=== PATIENT | female | born 1995 | race Caucasian/White ===

== ENCOUNTER 2022-06-16 08:19 | Emergency (ER) | payer BC ==
--- OUTSIDE RECORDS SUMMARY | 2022-06-16 08:24 | XMS REPORT | Continuity of Care Document ---
:1995 Author Organization [facility] t Address [address] [place] [address] Care Team Providers Name Role Phone PCP, PATIENT DOES NOT HAVE A Primary Care Physician Unavaila ANTWON Vasquez Attending Clinician Unavailable ANTWON CUELLAR Attending Clinician Unavailable Payers Payer Name Policy Type Policy Number Effective Date Expiration Date S ource [employer] [place] - [id number] 2021 00:00:00 OUT OF STATE Problems Condition Condition Condition Status Onset Resolution Last Treating Co mments Source Name Details Category Date Date Treatment Clinician Date Family Family Disease Active Univers planning, planning, 11-17 ity of IUD IUD 00:00: [place] (intrauter (intrauter 00 Me dical ine ine Branch device) device) check/rein check/rein sertion/re sertion/re moval moval Oral Oral Disease Active Univers contracept contracept 11-17 it y of ion ion 00:00: [place] initiation initiation 00 Me dical Branch 38 weeks 38 weeks Disease Active Unive rs gestation gestation 4-24 ity of of of 00:00: [place] 00 Medi cara Branch Susceptibl Susceptibl Disease Active 2017-06 U nivers e to e to 1-14 it[place] of varicella [place]ella [place] ([place]-immun (non-immun 00 Me dical e), e), Branch currently currently Short Short Disease Active Univers interval interval 9-17 ity of between between 00:00: [place] pregnancie pregnancie 00 Me dical s s Branch affecting affecting , , antepartum antepartum Previous Previous Disease Active Unive rs 9-17 ity of section section 00:00: [place] 00 Medical Branch Family Family Disease Active Univers history of history of -17 it y of Down Down 00:00: [place] syndrome syndrome 00 Medica l Branch Encounter Encounter Disease Active Uni vers for for 5-10 it[place] of prescripti prescript[place] for 00 Medical nuvaring nuvaring Branch BMI BMI Disease Active Univers 26.0-26.9, 26.0-26.9, 5-10 it y of adult adult 00:00: [place] 00 Medical Branch Extensive Extensive Disease Active Uni vers tattoos tattoos 3-27 ity of 00:00: [place] 00 Medical Branch Unobtainab Unobtainab Disease Active U nivers le family le family 9-11 ity of history history 00:00: [place] due to due to 00 Medical adoption adoption Branch Allergies, Adverse Reactions, Alerts Allergy Allergy Status Severity Reaction(s) Onset Inactive Treating Comm ents Source Name Type Date Date Clinician NO KNOWN Drug Active Univers ALLERGIE Class ity of S [facility] Social History Social Habit Start Date Stop Date Quantity Comments Source Alcohol intake 2021-11-18 2021-11-18 Ex-drinker [place] of 00:00:00 00:00:00 (finding) [facility] Tobacco Comment 2017-10-21 2017-10-21 half a pack/day Univ [facility] of 00:00:00 00:00:00 [facility] History of 2017-09-22 Cigarette Smoker Universi ty of tobacco use 00:00:00 [facility] Tobacco use and 2017-02-22 2017-02-22 Never used Universit y of exposure 00:00:00 00:00:00 [facility] Sex Ass[birth year] At [birth year] Universit y of 00:00:00 00:00:00 [facility] Smoking Status Start Date Stop Date Source Former smoker 2017-02-22 00:00:00 2017-02-22 00:00:00 Universi ty of [facility] Medications Ordered Filled Start Stop Current Ordering Indication Dosage Frequency Signature Comments Components Source Medication Medication Date Date Medication? Clinician (SIG) Name Name sage Yes [id number] .35mg Take 1 Univers ne (ORTHO 6-06 tablet by ity o f MICRONOR) 00:00: mouth [place] 0.35 mg 00 daily. Medical tablet Branch diphenhydra Yes Take by Uni vers mine HCl 2-27 mouth. ity of (BENADRYL 23:09: [place] ALLERGY 18 Medical ORAL) Branch cetirizine Yes [id number] 10mg Take 1 Univers 10 mg 4-03 tablet by ity of tablet 00:00: mouth [place] 00 daily. [facility] Branch Immunizations Ordered Filled Immunization Date Status Comments Sourc e Immunization Name Name TDAP 2018-09-14 Completed [facility] 00:00:00 [facility] Influenza Virus 2018-03-28 Completed Universit y of Vaccine Quad .5 mL 00:00:00 [facility] 6+ MO Branch HPV9 2017-09-10 Completed [facility] 00:00:00 [facility] TDAP 2017-06-15 Completed [facility] 00:00:00 [facility] Influenza Virus 2017-06-15 Completed Universit y of Vaccine Quad IM 3+ 00:00:00 [facility] Vital Signs Vital Name Observation Time Observation Value Comments Source Systolic blood 2021-11-17 16:15:00 99 mm[Hg] Univer sity of pressure [facility] Diastolic blood 2021-11-17 16:15:00 61 mm[Hg] Unive rsity of [facility] Heart rate 2021-11-17 16:15:00 91 /min [facility] Body temperature 2021-11-17 16:15:00 36.72 [facility] Respiratory rate 2021-11-17 16:15:00 18 /min [facility] Body height 2021-11-17 16:15:00 162.6 cm [facility] Body weight 2021-11-17 16:15:00 49.442 kg [facility] BMI 2021-11-17 16:15:00 18.71 kg/m2 [facility] Procedures Procedure Date / Time Performed Performing Clinician Fer e POCT TEST 2021-11-17 16:43:00 Antwon Cuellar [facility] Encounters Start End Encounter Admission Attending Care Care Encounter Source Date/Time Date/Time Type Type Clinicians Facility Department ID 2021-11-17 2021-11-17 Outpatient R LUISANTWON RODRIGUEZ [facility] B [id number] [facility] [place] 11:00:00 11:33:37 LUISMICHAEL ANTWON [facility] 2021-11-17 2021-11-17 Office Polo DESTINYCATALINO KRAKOW [id number] [facility] [place] 11:00:00 11:33:37 Visit Anahieduardo PETAR [id number] it y of WOMEN'S [id number] [facility] [id number] [place] [address] Branch 2021-11-17 2021-11-17 Outpatient R LUISANAHI RODRIGUEZEDUARDO [facility] B [id number] [facility] [place] 11:00:00 11:33:37 POLO ANTWON [facility] Results Test Description Test Time Test Comments Results Result Comments Source POCT TEST 2021-11-17 16:43:00 Test Item Value Reference Range Interpretation Comme nts POCT PREG (test code = 1605) Negative On board controls acceptable with C Line (test code = 3574) Yes POCT PREG LOT # (test code = 3575) POCT PREG TEST DATE (test code = 3576) [facility]
--- NOTE | 2022-06-16 09:50 | RAD REPORT ---
EXAM DESCRIPTION: US - Transvaginal Study Probe - 06/16/2022 9:28 am CLINICAL HISTORY: Pelvic pain/right pelvic pain COMPARISON: none FINDINGS: The uterus measures 8 x 3 x 4 cm. A fibroid is not seen. The endometrial stripe measures 3 millimeters Right ovary measures 6 x 2 x 2 centimeters. It contains blood flow. It contains a 2.4 centimeter hemo rrhagic cyst. Left ovary normal in size and echotexture containing prominent follicles. The right and left adnexa unremarkable Small amount of free fluid IMPRESSION: Enlarged right ovary with a 2.4 centimeter hemorrhagic cyst Small amount of free fluid
[2022-06-16 09:58] LABS: Urine Blood Negative (Negative); Urine Glucose Negative (Negative); Urine Protein Negative (Negative)
[2022-06-16 10:09] LABS: Urine Bacteria <20 /HPF (<20); Urine RBC <5 /HPF (None Seen)
[2022-06-16 10:20] LABS: Absolute Lymphocytes (CBC) 2.3 K/uL (0.7-4.9); Hematocrit 44.2 % (36.0-45.0); Lymphocytes % 28.4 % (15.3-44.8); MCV 88.4 fL (80-100); MPV 8.9 fL (7.6-11.3)
[2022-06-16 10:35] LABS: Potassium 4.1 mmol/L (3.5-5.1)
[2022-06-16] MEDS ORDERED: NA CHLORIDE 0.9% 1,000 ML ONE (11:43)
[2022-06-16] MEDS ORDERED: KETOROLAC 30 MG/ML INJ ONE (11:43)
--- NOTE | 2022-06-16 12:07 | EDPHYS ---
Physician Documentation [facility] Name: Lizz Cherry Age: 26 yrs Sex: Female : 1995 Arrival Date: 06/16/2022 Time: 08:25 Bed 12 Private MD: ED Physician Carlos Zhou HPI: 06/16 09:00 This 26 yrs old Female presents to ER via Ambulatory with complaints of Abdominal jh7 Cramping. 09:00 Patient reports cervical pain that woke her from sleep this morning. States that the jh7 pain radiates to her right lower quadrant. LMP last week. Denies fever, nausea, vomiting, or diarrhea. Reports history of ruptured ovarian cyst. No OB at this time.. 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 - Social history:: Smoking status: Patient denies any tobacco usage or history of. ROS: 09:00 Constitutional: Negative for fever, chills, and weight loss, Eyes: Negative for injury, jh7 pain, redness, and discharge, Neck: Negative for injury, pain, and swelling, Cardiovascular: Negative for chest pain, palpitations, and edema, Respiratory: Negative for shortness of breath, cough, wheezing, and pleuritic chest pain, Back: Negative for injury and pain, MS/Extremity: Negative for injury and deformity, Skin: Negative for injury, rash, and discoloration, Neuro: Negative for headache, weakness, numbness, tingling, and seizure. 09:00 Abdomen/GI: Positive for abdominal pain, abdominal cramps, Negative for nausea, vomiting, and diarrhea, constipation, abdominal distension, black/tarry stool, rectal pain, rectal bleeding. 09:00 All other systems are negative. Exam: 09:00 Constitutional: This is a well developed, well nourished patient who is awake, alert, jh7 and in no acute distress. Head/Face: Normocephalic, atraumatic. Eyes: Pupils equal round and reactive to light, extra-ocular motions intact. Lids and lashes normal. Conjunctiva and sclera are non-icteric and not injected. Cornea within normal limits. Periorbital areas with no swelling, redness, or edema. Cardiovascular: Regular rate and rhythm with a normal S1 and S2. No gallops, murmurs, or rubs. Normal PMI, no JVD. No pulse deficits. Respiratory: Lungs have equal breath sounds bilaterally, clear to auscultation and percussion. No rales, rhonchi or wheezes noted. No increased work of breathing, no retractions or nasal flaring. Back: No spinal tenderness. No costovertebral tenderness. Full range of motion. Skin: Warm, dry with normal turgor. Normal color with no rashes, no lesions, and no evidence of cellulitis. MS/ Extremity: Pulses equal, no cyanosis. Neurovascular intact. Full, normal range of motion. Neuro: Awake and alert, GCS 15, oriented to person, place, time, and situation. Motor strength 5/5 in all extremities. Sensory grossly intact. Normal gait. 09:00 Abdomen/GI: Inspection: abdomen appears normal, Bowel sounds: normal, Palpation: soft, mild abdominal tenderness, in the right lower quadrant. Vital Signs: 09:35 BP 129 / 86; Pulse 89; Resp 17; Temp 98.4; Pulse Ox 100% on R/A; Weight 47.63 kg (R); 7 Height 5 ft. 3 in. (160.02 cm); Pain 3/10; 11:49 BP 116 / 59; Pulse 85; Resp 14; Pulse Ox 98% ; vg1 09:35 Body Mass Index 18.60 (47.63 kg, 160.02 cm) [facility] MDM: 08:54 Patient medically screened. [facility] 12:15 Differential diagnosis: ectopic , Ovarian cyst, uterine fibroids, ovarian jh7 torsion. Data reviewed: vital signs, nurses notes, lab test result(s), radiologic studies, ultrasound. Data interpreted: Pulse oximetry: is 98 %. Interpretation: normal. Counseling: I had a detailed discussion with the patient and/or guardian regarding: the historical points, exam findings, and any diagnostic results supporting the discharge/admit diagnosis, the need for outpatient follow up, an OB/Gyne specialist. Response to treatment: the patient's symptoms have markedly improved after treatment. ED course: Reviewed all labs and imaging with the patient. Informed her that she had a ruptured ovarian cyst. However, no further care in the ED is indicated due to there being adequate blood flow to the ovaries. The patient responded well after pain medication administration. Advised for her to follow-up with her KILN STACKER in the next few days. If she develops any new concerning symptoms, or current symptoms become severe, she may return to the ER for further eval.. 06/16 09:08 Order name: Basic Metabolic Panel; Complete Time: 11:09 [facility] 06/16 09:08 Order name: CBC with Diff; Complete Time: 10:34 [facility] 06/16 09:10 Order name: Urine Microscopic Only; Complete Time: 10:34 [facility] 06/16 09:58 Order name: Urine --Ancillary (enter results); Complete Time: 11:09 06/16 09:58 Order name: Urine Dipstick-Ancillary; Complete Time: 10:34 EDMS 06/16 09:08 Order name: IV Saline Lock; Complete Time: 11:29 [facility] 06/16 09:08 Order name: Labs collected and sent; Complete Time: 11:29 [facility] 06/16 09:08 Order name: NPO; Complete Time: 11:42 [facility] 06/16 09:08 Order name: Urine Dipstick-Ancillary (obtain specimen); Complete Time: 09:58 [facility] 06/16 09:08 Order name: Urine Test (obtain specimen); Complete Time: 09:58 [facility] 06/16 09:30 Order name: Transvaginal Study Probe; Complete Time: 10:34 EDMS Administered Medications: 11:45 Drug: NS 0.9% 1000 ml Route: IV; Rate: 1 bolus; Site: right antecubital; vg1 12:53 Follow up: IV Status: Completed infusion ap3 11:45 Drug: Ketorolac 15 mg Route: IVP; Site: right antecubital; vg1 12:53 Follow up: Response: No adverse reaction ap3 Disposition: 15:18 Co-signature as Attending Physician, Carlos Zhou MD I agree with the assessment and rt plan of care. Disposition Summary: 06/16/22 12:06 Discharge Ordered Location: Home [facility] Problem: new [facility] Symptoms: have improved [facility] Condition: Stable [facility] Diagnosis - Hemorrhagic Ovarian Cyst [facility] Followup: [facility] - With: Private Physician - When: 2 - 3 days - Reason: Recheck today's complaints Discharge Instructions: - Discharge Summary Sheet [facility] - Ovarian Cyst [facility] Forms: - Medication Reconciliation Form [facility] - Thank You Letter [facility] Signatures: Dispatcher [employer] EDRodriguez Velasquez RN RN jl7 Phoebe Alcaraz RN RN vg1 Rachel Michelle, EKG TECH EKG TECH 7 Carlos Zhou MD MD rt Nazia Pérez RN ap3 Corrections: (The following items were deleted from the chart) 09:29 09:09 Pelvis Complete+US.RAD.BRZ ordered. EDMS EDMS
--- NOTE | 2022-06-16 12:07 | ER ---
Nurse's Notes [facility] Name: Lizz Cherry Age: 26 yrs Sex: Female : 1995 Arrival Date: 06/16/2022 Time: 08:25 Bed 12 Private MD: Diagnosis: Hemorrhagic Ovarian Cyst Presentation: 06/16 09:35 Chief complaint: Patient states: Woke to RLQ stabbing pain, hx of ovarian cycst. jl7 Coronavirus screen: Vaccine status: Patient reports being unvaccinated. Ebola Screen: No symptoms or risks identified at this time. Initial Sepsis Screen: Does the patient meet any 2 criteria? No. Patient's initial sepsis screen is negative. Does the patient have a suspected source of infection? No. Patient's initial sepsis screen is negative. Risk Assessment: Do you want to hurt yourself or someone else? Patient reports no desire to harm self or others. Onset of symptoms was June 16, 2022. 09:35 Method Of Arrival: Ambulatory [facility] 09:35 Acuity: HOLLIE 3 jl7 Triage Assessment: 09:36 General: Appears in no apparent distress. uncomfortable, Behavior is calm, cooperative, jl7 appropriate for age. Pain: Complains of pain in left lower quadrant Pain currently is 3 out of 10 on a pain scale. GI: Reports lower abdominal pain. 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 - Social history:: Smoking status: Patient denies any tobacco usage or history of. Screenin:49 [facility] ED Fall Risk Assessment (Adult) History of falling in the last 3 months, vg1 including since admission No falls in past 3 months (0 pts) Confusion or Disorientation No (0 pts) Intoxicated or Sedated No (0 pts) Impaired Gait No (0 pts) Mobility Assist Device Used No (0 pt) Altered Elimination No (0 pt) Score/Fall Risk Level 0 - 2 = Low Risk Oriented to surroundings, Maintained a safe environment, Educated pt \T\ family on fall prevention, incl call for assistance when getting out of bed, Assessed \T\ reinforced patient's understanding of fall precautions. Abuse screen: Denies threats or abuse. Nutritional screening: No deficits noted. Tuberculosis screening: No symptoms or risk factors identified. Assessment: 11:49 General: Appears in no apparent distress. comfortable, Behavior is calm, cooperative. vg1 Pain: Complains of pain in right inguinal area and left inguinal area Pain currently is 3 out of 10 on a pain scale. Neuro: Level of Consciousness is awake, alert, obeys commands, Oriented to person, place, time, situation. Cardiovascular: Patient's skin is warm and dry. Respiratory: Airway is patent Respiratory effort is even, unlabored. GI: Abdomen is flat, Bowel sounds present X 4 quads. Abdomen is tender to palpation in right lower quadrant and left lower quadrant. : No signs and/or symptoms were reported regarding the genitourinary system. Derm: Skin is pink, warm \T\ dry. Musculoskeletal: Circulation, motion, and sensation intact. Vital Signs: 09:35 BP 129 / 86; Pulse 89; Resp 17; Temp 98.4; Pulse Ox 100% on R/A; Weight 47.63 kg (R); jl7 Height 5 ft. 3 in. (160.02 cm); Pain 3/10; 11:49 BP 116 / 59; Pulse 85; Resp 14; Pulse Ox 98% ; vg1 09:35 Body Mass Index 18.60 (47.63 kg, 160.02 cm) jl7 ED Course: 08:25 Patient arrived in ED. mr 08:54 Rachel Michelle [facility]NP [facility] 7 08:54 Carlos Zhou MD is Attending Physician. jh7 09:30 Transvaginal Study Probe In Process Unspecified. EDMS 09:36 Triage completed. jl7 09:36 Arm band placed on right wrist. jl7 11:29 Inserted saline lock: 22 gauge in left antecubital area, using aseptic technique. Blood bc6 collected. 11:49 Phoebe Alcaraz, RN is Primary Nurse. vg1 11:49 Patient has correct armband on for positive identification. Bed in low position. Call vg1 light in reach. Side rails up X 1. 12:52 No provider procedures requiring assistance completed. IV discontinued, intact, ap3 bleeding controlled, No redness/swelling at site. Pressure dressing applied. Administered Medications: 11:45 Drug: NS 0.9% 1000 ml Route: IV; Rate: 1 bolus; Site: right antecubital; vg1 12:53 Follow up: IV Status: Completed infusion ap3 11:45 Drug: Ketorolac 15 mg Route: IVP; Site: right antecubital; vg1 12:53 Follow up: Response: No adverse reaction ap3 Medication: 11:49 VIS not applicable for this client. vg1 Outcome: 12:06 Discharge ordered by . chava 12:52 Discharged to home ambulatory. ap3 12:52 Condition: good 12:52 Discharge instructions given to patient, Instructed on discharge instructions, follow up and referral plans. Demonstrated understanding of instructions, follow-up care. 12:53 Patient left the ED. ap3 Signatures: Dispatcher [employer] Merced OlsenalRodriguez, RN RN jl7 Nazia Pérez RN RN ap3 Phoebe Alcaraz RN RN vg1 Rachel Michelle, STORE LEAD STORE LEAD 7 Amalia Anderson 6
[2022-06-16 13:15] VITALS: TEMP 98.4
[2022-06-16 13:16] VITALS: BP 116/59; O2SAT 98
== END 2022-06-16 12:53 | disposition home or self-care (01) ==
LOC: ER 08:19
DX: N83.201 Unspecified ovarian cyst, right side (principal)
CPT/HCPCS: 85025; 80048; 36415; 81025; 76830; J7030; 81003; 81015; 96361; 96374; 99284

== ENCOUNTER 2023-09-27 04:41 | Emergency (ER) | payer BC ==
--- OUTSIDE RECORDS SUMMARY | 2023-09-27 04:45 | XMS REPORT | Continuity of Care Document ---
Author Name Unknown Address [address] [place] [address] [facility] thconnect Address 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 Role Phone Yaquelin Lujan NP Primary Care Physician [phone] Yaquelin Lujan NP Attending Clinician [phone] YAQUELIN LUJAN Attending Clinician Unavailab le 2, [facility] Attending Clinician Unavailable Doctor Unassigned, [place] Attending Clinician U ANTWON Vincent Attending Clinician Kristela ANTWON Vasquez Attending Clinician Unavaila rex Payers Payer Name Policy Type Policy Number Effective Date Expirati on Date Source Problems Condition Name Condition Details Condition Category Status Onset Date Resolution Date Last Treatment Date Treating Clinician Comments Source Family planning, IUD (intrauter ine device) check/rein sertion/re moval Family planning, IUD (intrauter ine device) check/rein sertion/re moval Disease Active 11-17 00:00: 00 [facility] Oral contracept ion initiation Oral contracept ion initiation Disease Active 11-17 00:00: 00 [facility] 38 weeks gestation of 38 weeks gestation of Disease Active 4-24 00:00: 00 [facility] Susceptibl e to varicella (non-immun e), currently Susceptibl e to varicella (non-immun e), currently Disease Active 2017-06-14 00:00: 00 [facility] Short interval between pregnancie s affecting , antepartum Short interval between pregnancie s affecting , antepartum Disease Active 02-28 00:00: 00 [facility] Previous section Previous section Disease Active 02-28 00:00: 00 [facility] Family history of Down syndrome Family history of Down syndrome Disease Active 02-28 00:00: 00 [facility] Encounter for prescripti on for nuvaring Encounter for prescripti on for nuvaring Disease Active 10-21 00:00: 00 [facility] Overweight (BMI 25.0-29.9) Overweight (BMI 25.0-29.9) Disease Active 10-21 00:00: 00 [facility] BMI 26.0-26.9, adult BMI 26.0-26.9, adult Disease Active 10-21 00:00: 00 [facility] Extensive tattoos Extensive tattoos Disease Active - 00:00: 00 [facility] Unobtainab le family history due to adoption Unobtainab le family history due to adoption Disease Active 02-22 00:00: 00 [facility] Allergies, Adverse Reactions, Alerts Allergy Name Allergy Type Status Severity Reaction(s) Onset Date Inactive Date Treating Clinician Comments Source NO KNOWN ALLERGIE S Drug Class Active [facility] Social History Social Habit Start Date Stop Date Quantity Comments Source Gender identity [facility] Exposure to SARS-CoV-2 (event) 2022-07-07 00:00:00 2022-07-17 08:56:00 Not sure [facility] Tobacco use and exposure 2022-07-17 00:00:00 2022-07-17 00:00:00 Smokeless tobacco non-user [facility] Alcohol intake 2022-07-17 00:00:00 2022-07-17 00:00:00 Ex-drinker (finding) [facility] Tobacco Comment 2022-07-17 00:00:00 2022-07-17 00:00:00 half a pack/day [facility] History of Social function 2022-07-17 00:00:00 2022-07-17 00:00:00 [facility] History of tobacco use 2017-09-22 00:00:00 Cigarette Smoker [facility] Sex Assigned At 1995 00:00:00 1995 00:00:00 [facility] Smoking Status Start Date Stop Date Source Ex-smoker 2022-07-17 00:00:00 2022-07-17 00:00:00 [facility] Medications Ordered Medication Name Filled Medication Name Start Date Stop Date Current Medication? Ordering Clinician Indication Dosage Frequency Signature (SIG) Comments Components Source propranoloL 10 mg tablet 12-23 00:00: 00 Yes [id number] 10mg Take 1 tablet by mouth in the morning and 1 tablet in the evening. [facility] SERTraline 50 mg tablet 12-23 00:00: 00 Yes [id number] 50mg Take 1 tablet by mouth in the morning. [facility] diphenhydra mine HCl (BENADRYL ALLERGY ORAL) 07-17 10:10: 12 Yes Take by mouth. [facility] propranoloL 10 mg tablet 07-17 00:00: 00 12-22 00:00 :00 No [id number] 10mg Take 1 tablet by mouth in the morning and 1 tablet in the evening. [facility] SERTraline 50 mg tablet 07-17 00:00: 00 12-22 23:06 :49 No [id number] 50mg Take 1 tablet by mouth in the morning. [facility] norethindro ne (ORTHO MICRONOR) 0.35 mg tablet 11-17 00:00: 00 Yes [id number] .35mg Take 1 tablet by mouth daily. [facility] diphenhydra mine HCl (BENADRYL ALLERGY ORAL) 2 23:09: 18 Yes Take by mouth. [facility] cetirizine 10 mg tablet 09-14 00:00: 00 Yes [id number] 10mg Take 1 tablet by mouth daily. [facility] Vital Signs Vital Name Observation Time Observation Value Rosy lora Systolic blood pressure 2022-07-17 16:09:00 120 mm[Hg] [facility] Diastolic blood pressure 2022-07-17 16:09:00 79 mm[Hg] [facility] Heart rate 2022-07-17 16:09:00 108 /min [facility] Body temperature 2022-07-17 16:09:00 37.17 [place] [facility] Respiratory rate 2022-07-17 16:09:00 18 /min [facility] Body height 2022-07-17 16:09:00 160 cm [facility] Body weight 2022-07-17 16:09:00 53.887 kg [facility] BMI 2022-07-17 16:09:00 21.04 kg/m2 [facility] Oxygen saturation in Arterial blood by Pulse oximetry 2022-07-17 16:09:00 100 /min [facility] Systolic blood pressure 2021-11-17 16:15:00 99 mm[Hg] [facility] Diastolic blood pressure 2021-11-17 16:15:00 61 mm[Hg] [facility] Heart rate 2021-11-17 16:15:00 91 /min [facility] Body temperature 2021-11-17 16:15:00 36.72 [place] [facility] Respiratory rate 2021-11-17 16:15:00 18 /min [facility] Body height 2021-11-17 16:15:00 162.6 cm [facility] Body weight 2021-11-17 16:15:00 49.442 kg [facility] BMI 2021-11-17 16:15:00 18.71 kg/m2 [facility] Procedures Procedure Date / Time Performed Performing Clinician Source FREE T4 2022-07-17 17:06:00 [facility] THYRO[facility]IM[facility] HORMONE 2022-07-17 17:06:00 Yaquelin Lujan [facility] COMP. METABOLIC PANEL (94653) 2022-07-17 17:06:00 Yaquelin Lujan [facility] LIPID PANEL (78671)(TOTAL CHOLESTEROL, TRIGLYCERIDES, HDL) 2022-07-17 17:06:00 Yaquelin Lujan [facility] CBC WITH DIFF 2022-07-17 17:06:00 [facility] GLYCOSYLATED HEMOGLOBIN (A1C) 2022-07-17 17:06:00 Yaquelin Lujan [facility] FREE T3 2022-07-17 17:06:00 Yaquelin Lujan Un [facility] POCT URINALYSIS 2022-07-17 16:32:00 Donna Hilton [facility] ASSIGNMENT OF BENEFITS 2022-07-17 15:55:13 Docto r Unassigned, [place] [facility] POCT TEST 2021-11-17 16:43:00 Luther Cuellar [facility] Encounters Start Date/Time End Date/Time Encounter Type Admission Type Attending Clinicians Care Facility Care Department Encounter ID Source 2022-12-22 00:00:00 2022-12-22 00:00:00 Refill Yaquelin Lujan [facility] [id number] [facility] 2022-09-14 11:30:00 2022-09-14 11:30:00 Outpatient R YAQUELIN LUJAN OGECHUKWU [facility] [id number] [facility] 2022-07-17 11:15:00 2022-07-17 11:30:00 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 Visit 2, [facility] Yaquelin Lujan [facility] [id number] [facility] 2022-07-17 10:00:00 2022-07-17 11:02:33 Office Visit Sommer Myrnaantonella [facility] [id number] [facility] 2022-07-17 10:00:00 2022-07-17 11:02:33 Outpatient R YAQUELIN LUJAN OGECHUKLaylaTal [facility] [id number] [facility] 2022-07-17 00:00:00 2022-07-17 00:00:00 Orders Only Doctor Unassigned, [place] [facility] [id number] [id number] [facility] 2021-11-17 11:00:00 2021-11-17 11:33:37 Outpatient R ANTWON CUELLAR CHERYAL [facility] [id number] [facility] 2021-11-17 11:00:00 2021-11-17 11:33:37 Office Visit Antwon Cuellar [facility] 1..114 [id number] [facility] 2021-11-17 11:00:00 2021-11-17 11:33:37 Outpatient R ANTWON CUELLAR CHERYAL [facility] [id number] [facility] Results Test Description Test Time Test Comments Results Result Co mments Source [facility] W SPECIFIC [id number] 16:40:00* Test Item Value Reference Range Interpretation Comme nts POCT U SP GRAV (test code = 3255) 1.030 mg/dl 1.005-1.025 A POCT PH U (test code = 3254) 5 mg/dl 5-8 POCT U LEUK EST (test code = 3263) Trace Negative - Negative POCT U NIT (test code = 3262) Negative Negative - Negati ve POCT U PROT (test code = 3259) Positive Negative - Negative POCT U GLU (test code = 3256) Negative Negative - Negati ve POCT U KETONE (test code = 3258) Negative Negative - Negative POCT U UROBILI (test code = 3260) 8 mg/dl 0.2-1 A POCT U BILI (test code = 3261) Negative Negative - Negative POCT U BLD (test code = 3257) Negative Negative - Negati ve POCT U COLOR (test code = 3266) Cristina POCT U APPEAR (test code = 3267) Cloudy Lab Interpretation (test cod e = 63553-3) Abnormal [facility] [id number] 16:43:00* Test Item Value Reference Range Interpretation Comme nts POCT PREG (test code = 1605) Negative On board controls acceptable with C Line (test code = 3574) Yes POCT PREG LOT # (test code = 3575) POCT PREG TEST DATE ( test code = 3576) [facility]
[2023-09-27] MEDS ORDERED: ONDANSETRON 4 MG/2 ML VIAL ONE (05:04)
[2023-09-27] MEDS ORDERED: HYDROMORPHONE HCL 1 MG/ML INJ ONE (05:04)
[2023-09-27] MEDS ORDERED: NA CHLORIDE 0.9% 1,000 ML ONE (05:05)
[2023-09-27 05:24] LABS: Specific Gravity 1.021 (1.005-1.030)
[2023-09-27 05:26] LABS: Absolute Basophils 0.1 K/uL (0-0.5); Absolute Eosinophils 0.5 K/uL (0-0.5); Absolute Lymphocytes (CBC) 2.1 K/uL (0.7-4.9); Absolute Monocytes 0.9 K/uL (0.1-1.3); Absolute Neutrophil 11.6 K/uL (1.8-8.0); Basophils % 0.6 % (0-1.3); Eosinophils % 3.3 % (0-4.4); Hematocrit 40.9 % (36.0-45.0); Hemoglobin 13.7 g/dL (12.0-15.0); Lymphocytes % 13.8 % (15.3-44.8); MCH 29.9 pg (27.0-35.0); MCHC 33.4 g/dL (32.0-36.0); MCV 89.7 fL (80-100); MPV 9.5 fL (7.6-11.3); Monocytes % 6.1 % (3.3-12.3); Neutrophils % 76.2 % (41.7-73.7); Platelets 338 thou/uL (152-406); RBC Red Blood Cell Count 4.56 M/uL (3.86-4.86); Red Cell Distribution Width 13.5 % (12.1-15.2)
[2023-09-27 05:54] LABS: Specific Gravity 1.021 (1.005-1.030); Sqamous Epithelial <5 /HPF (None Seen); Urine Bacteria <20 /HPF (<20); Urine Bilirubin NEGATIVE (Negative); Urine Blood Trace (Negative); Urine Clarity Turbid (Clear); Urine Color Light-Yellow (Yellow); Urine Culture Reflex Order NOT NEEDED; Urine Glucose NEGATIVE (Negative); Urine Ketones 1+ (Negative); Urine Microscopic Reflex YN ORDER UMIC; Urine Mucus Slight /HPF (None Seen); Urine Nitrite NEGATIVE (Negative); Urine Protein NEGATIVE (Negative); Urine RBC None Seen /HPF (None Seen); Urine Urobilinogen Normal (Normal); Urine WBC <5 /HPF (<5)
[2023-09-27 05:56] LABS: Albumin 3.9 g/dL (3.4-5.0); Anion Gap 12.1 mEq/L (5.0-15.0); Bilirubin Total 0.9 mg/dL (0.2-1.0); Globulin 3.8 g/dL (2.3-3.5); Potassium 4.1 mEq/L (3.5-5.1); Protein, Total 7.7 g/dL (6.4-8.2)
--- NOTE | 2023-09-27 07:01 | EDPHYS ---
Physician Documentation [facility] Name: Lizz Cherry Age: 27 yrs Sex: Female : 1995 Arrival Date: 09/27/2023 Time: 04:41 Bed 19 Private MD: ED Physician Ugo Tapia HPI: 09/26 05:00 This 27 yrs old Female presents to ER via Ambulatory with complaints of Cyst, Abdominal sp3 Pain. 05:00 27-year-old female who presents with lower abdominal pain since yesterday. Patient sp3 states that it feels like an ovarian cyst which she has had before. She has also had 2 C-sections but no other surgeries. PMH is otherwise negative. Pain is described as sharp in nature and comes in waves. LMP was approximately 5 weeks ago but due to her says she states that she has irregular menses. She is on oral contraception. No vomiting, diarrhea, upper abdominal pain, back pain, shortness of breath, chest pain, syncope, near syncope, vaginal bleeding or discharge, or any other signs or symptoms on ROS at this time. She also denies dysuria and urinary frequency.. 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 - Infectious Disease History:: Denies. - Social history:: Smoking status: Reported history of juuling and/or vaping. ROS: 05:01 Constitutional: Negative for fever, chills, and weight loss, Eyes: Negative for injury, sp3 pain, redness, and discharge, ENT: Negative for injury, pain, and discharge, Neck: Negative for injury, pain, and swelling, Cardiovascular: Negative for chest pain, palpitations, and edema, Respiratory: Negative for shortness of breath, cough, wheezing, and pleuritic chest pain, Back: Negative for injury and pain, : Negative for injury, bleeding, discharge, and swelling, MS/Extremity: Negative for injury and deformity, Skin: Negative for injury, rash, and discoloration, Neuro: Negative for headache, weakness, numbness, tingling, and seizure, Psych: Negative for depression, anxiety, suicide ideation, homicidal ideation, and hallucinations, Allergy/Immunology: Negative for hives, rash, and allergies, Endocrine: Negative for neck swelling, polydipsia, polyuria, polyphagia, and marked weight changes, Hematologic/Lymphatic: Negative for swollen nodes, abnormal bleeding, and unusual bruising, 05:01 All other systems are negative, Exam: 05:01 Constitutional: This is a well developed, well nourished patient who is awake, alert, sp3 and in no acute distress. Head/Face: Normocephalic, atraumatic. Eyes: Pupils equal round and reactive to light, extra-ocular motions intact. Lids and lashes normal. Conjunctiva and sclera are non-icteric and not injected. Cornea within normal limits. Periorbital areas with no swelling, redness, or edema. Neck: Trachea midline, no thyromegaly or masses palpated, and no cervical lymphadenopathy. Supple, full range of motion without nuchal rigidity, or vertebral point tenderness. No Meningismus. Chest/axilla: Normal chest wall appearance and motion. Nontender with no deformity. No lesions are appreciated. Cardiovascular: Regular rate and rhythm with a normal S1 and S2. No gallops, murmurs, or rubs. Normal PMI, no JVD. No pulse deficits. Respiratory: Lungs have equal breath sounds bilaterally, clear to auscultation and percussion. No rales, rhonchi or wheezes noted. No increased work of breathing, no retractions or nasal flaring. Back: No spinal tenderness. No costovertebral tenderness. Full range of motion. Skin: Warm, dry with normal turgor. Normal color with no rashes, no lesions, and no evidence of cellulitis. MS/ Extremity: Pulses equal, no cyanosis. Neurovascular intact. Full, normal range of motion. Neuro: Awake and alert, GCS 15, oriented to person, place, time, and situation. Cranial nerves II-XII grossly intact. Motor strength 5/5 in all extremities. Sensory grossly intact. Cerebellar exam normal. Normal gait. Psych: Awake, alert, with orientation to person, place and time. Behavior, mood, and affect are within normal limits. 05:01 Abdomen/GI: Abdomen soft with mild tenderness in the lower abdomen over the bladder. No lateralized pain and no peritoneal signs, rebound or guarding., Vital Signs: 04:54 Weight 58.97 kg; Height 5 ft. 3 in. ; Pain 7/10; cm10 04:54 BP 123 / 88; Pulse 95; Resp 16; Temp 98.4; Pulse Ox 100% on R/A; Pain 7/10; pf1 05:27 BP 118 / 75; Pulse 81; Resp 16; Pulse Ox 100% on R/A; pf1 06:13 BP 112 / 68; Pulse 64; Resp 16; Pulse Ox 100% on R/A; Pain 2/10; pf1 07:08 BP 108 / 55; Pulse 75; Resp 18; Pulse Ox 100% on R/A; db 04:54 Body Mass Index 23.03 (58.97 kg, 160.02 cm) cm10 04:54 Pain Scale: Adult cm10 04:54 Pain Scale: Adult pf1 06:13 Pain Scale: Adult pf1 MDM: 04:56 Patient medically screened. sp3 05:02 Data reviewed: vital signs, nurses notes, lab test result(s), radiologic studies. ED sp3 course: 27-year-old female with lower abdominal pain. Differential diagnosis includes ovarian cyst, UTI/pyelonephritis spectrum, kidney stone, other GI pathology, among others. Workup will include laboratory values, urine analysis, hCG, CT scan of the abdomen pelvis with IV contrast, and Dilaudid, Zofran and IV fluids. Disposition pending workup and patient course.. 06:59 ED course: CT demonstrates ruptured ovarian cyst consistent with history. Laboratory sp3 values demonstrate no significant abnormality. Patient feels significantly better. We will safely discharged home at this time with PCP follow-up.. 09/26 04:56 Order name: CBC with Diff; Complete Time: 05:50 sp3 09/26 04:56 Order name: CMP; Complete Time: 06:01 sp3 09/26 04:56 Order name: Lipase; Complete Time: 06:01 sp3 09/26 04:56 Order name: Test, Urine; Complete Time: 05:50 sp3 09/26 04:56 Order name: Urinalysis w/ reflexes; Complete Time: 06:01 sp3 09/26 04:56 Order name: CT Abd/Pelvis - IV Contrast Only sp3 09/26 04:56 Order name: IV Saline Lock; Complete Time: 05:01 sp3 09/26 04:56 Order name: Labs collected and sent; Complete Time: 05:08 sp3 Administered Medications: 05:15 Drug: NS 0.9% IV 1000 ml IV at 1 bolus Per protocol; 1000 mL bolus Route: IV; Rate: 1 pf1 bolus; Site: right forearm; 05:42 Follow up: Response: No adverse reaction; Marked relief of symptoms pf1 07:05 Follow up: Response: No adverse reaction; IV Status: Completed infusion; IV Intake: db 1000ml 05:15 Drug: Ondansetron IVP 4 mg IVP once; over 2 minutes Route: IVP; Site: right forearm; pf1 05:41 Follow up: Response: No adverse reaction; Marked relief of symptoms pf1 05:31 Drug: HYDROmorphone IVP 1 mg IVP once Route: IVP; Site: right forearm; pf1 05:42 Follow up: Response: No adverse reaction; Marked relief of symptoms; Pain is decreased; pf1 RASS: Alert and Calm (0) Disposition Summary: 09/27/23 07:00 Discharge Ordered Notes: Location: Home sp3 Condition: Stable sp3 Diagnosis - Ruptured ovarian cyst sp3 Followup: sp3 - With: Private Physician - When: Upon discharge from the Emergency Department - Reason: Continuance of care Discharge Instructions: - Discharge Summary Sheet sp3 - Ovarian Cyst sp3 Forms: - Medication Reconciliation Form sp3 - Thank You Letter sp3 - Antibiotic Education sp3 - Prescription Opioid Use sp3 - Patient Portal Instructions sp3 - Leadership Thank You Letter sp3 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 EDMS EDMS 04:57 04:57 COMPREHENSIVE METABOLIC PANEL+C.LAB.BRZ ordered. EDMS EDMS 04:57 04:57 LIPASE+C.LAB.BRZ ordered. EDMS EDMS 04:57 04:57 Test, Urine+UC.LAB.BRZ ordered. EDMS EDMS 04:57 04:57 Urinalysis+U.LAB.BRZ ordered. EDMS EDMS
--- NOTE | 2023-09-27 07:01 | ER ---
Nurse's Notes [facility] Name: Lizz Cherry Age: 27 yrs Sex: Female : 1995 Arrival Date: 09/27/2023 Time: 04:41 Bed 19 Private MD: Diagnosis: Ruptured ovarian cyst Presentation: 09/26 04:54 Chief complaint: Patient states: "I have pain in my cervix" pt reports that her lower cm10 abdominal pain began 6 hours ago. Pt reports 1 episode of vomiting. Coronavirus screen: Vaccine status: Patient reports receiving the 2nd dose of the covid vaccine. Client denies travel out of the [place] in the last 14 days. At this time, the client does not indicate any symptoms associated with coronavirus-19. Ebola Screen: Patient denies travel to an Ebola-affected area in the 21 days before illness onset. No symptoms or risks identified at this time. Initial Sepsis Screen: Does the patient meet any 2 criteria? No. Patient's initial sepsis screen is negative. Does the patient have a suspected source of infection? No. Patient's initial sepsis screen is negative. Risk Assessment: Do you want to hurt yourself or someone else? Patient reports no desire to harm self or others. Onset of symptoms was September 27, 2023. 04:54 Method Of Arrival: Ambulatory cm10 04:54 Acuity: HOLLIE 3 cm10 Triage Assessment: 04:55 General: Appears in no apparent distress. uncomfortable, well groomed, well developed, pf1 Behavior is calm, cooperative, appropriate for age, quiet. Pain: Complains of pain in abdomen Pain currently is 7 out of 10 on a pain scale. Pain began. GI: Abdomen is flat, non-distended, Bowel sounds present X 4 quads. Reports lower abdominal pain. 04:55 General: Appears in no apparent distress. comfortable, Behavior is calm, cooperative. cm10 Pain: Complains of pain in suprapubic area Pain currently is 7 out of 10 on a pain scale. Neuro: No deficits noted. Level of Consciousness is awake, alert, obeys commands, Oriented to person, place, time, situation, Appropriate for age. Respiratory: No deficits noted. Airway is patent Respiratory effort is even, unlabored, Respiratory pattern is regular, symmetrical. GI: Reports lower abdominal pain, nausea, vomiting. 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 - Infectious Disease History:: Denies. - Social history:: Smoking status: Reported history of juuling and/or vaping. Screenin:56 [facility] ED Fall Risk Assessment (Adult) History of falling in the last 3 months, pf1 including since admission No falls in past 3 months (0 pts) Confusion or Disorientation No (0 pts) Intoxicated or Sedated No (0 pts) Impaired Gait No (0 pts) Mobility Assist Device Used No (0 pt) Altered Elimination No (0 pt) Score/Fall Risk Level 0 - 2 = Low Risk Oriented to surroundings, Maintained a safe environment, Educated pt \\T\\ family on fall prevention, incl call for assistance when getting out of bed, Assessed \\T\\ reinforced patient's understanding of fall precautions, Provided non-skid footwear, Hourly rounding (assess needs \\T\\ fall precautionary measures) done, Used ambulatory aids as needed (educated on \\T\\ assisted with), Used gait belt as appropriate. Abuse screen: Denies threats or abuse. Nutritional screening: No deficits noted. Tuberculosis screening: No symptoms or risk factors identified. Assessment: 04:57 General: Appears in no apparent distress. uncomfortable, well groomed, well developed, pf1 Behavior is calm, cooperative, appropriate for age, quiet. Pain: Pain began 6-8 hours. Pain: Complains of pain in suprapubic area and abdomen Pain currently is 7 out of 10 on a pain scale. Neuro: No deficits noted. Level of Consciousness is awake, alert, obeys commands, Oriented to person, place, time, situation. Cardiovascular: No deficits noted. Capillary refill < 3 seconds Patient's skin is warm and dry. Respiratory: No deficits noted. Airway is patent Respiratory effort is even, unlabored, Respiratory pattern is regular, symmetrical. GI: Abdomen is flat, non-distended, Abd is soft Abdomen is tender to palpation in suprapubic area, right lower quadrant and left lower quadrant Reports lower abdominal pain. : No deficits noted. No signs and/or symptoms were reported regarding the genitourinary system. EENT: No deficits noted. No signs and/or symptoms were reported regarding the EENT system. Derm: No deficits noted. No signs and/or symptoms reported regarding the dermatologic system. Musculoskeletal: No deficits noted. No signs and/or symptoms reported regarding the musculoskeletal system. 05:25 Reassessment: Patient appears in no apparent distress at this time. Patient and/or pf1 family updated on plan of care and expected duration. Pain level reassessed. Patient is alert, oriented x 3, equal unlabored respirations, skin warm/dry/pink. 06:17 Reassessment: Patient appears in no apparent distress at this time. Patient and/or pf1 family updated on plan of care and expected duration. Pain level reassessed. Patient is alert, oriented x 3, equal unlabored respirations, skin warm/dry/pink. Patient states feeling better. Patient states symptoms have improved. 07:23 Reassessment: Patient appears in no apparent distress at this time. Patient and/or db family updated on plan of care and expected duration. Pain level reassessed. Patient is alert, oriented x 3, equal unlabored respirations, skin warm/dry/pink. Vital Signs: 04:54 Weight 58.97 kg; Height 5 ft. 3 in. ; Pain 7/10; cm10 04:54 BP 123 / 88; Pulse 95; Resp 16; Temp 98.4; Pulse Ox 100% on R/A; Pain 7/10; pf1 05:27 BP 118 / 75; Pulse 81; Resp 16; Pulse Ox 100% on R/A; pf1 06:13 BP 112 / 68; Pulse 64; Resp 16; Pulse Ox 100% on R/A; Pain 2/10; pf1 07:08 BP 108 / 55; Pulse 75; Resp 18; Pulse Ox 100% on R/A; db 04:54 Body Mass Index 23.03 (58.97 kg, 160.02 cm) cm10 04:54 Pain Scale: Adult cm10 04:54 Pain Scale: Adult pf1 06:13 Pain Scale: Adult pf1 ED Course: 04:45 Patient arrived in ED. gm2 04:48 Ugo Tapia MD is Attending Physician. sp3 04:55 Triage completed. cm10 04:55 Arm band placed on Patient placed in an exam room, on a stretcher, on pulse oximetry. cm10 04:55 Patient has correct armband on for positive identification. Placed in gown. Bed in low pf1 position. Call light in reach. Side rails up X 1. Door closed. Noise minimized. Moved to private room. Warm blanket given. 04:56 No provider procedures requiring assistance completed. pf1 05:00 Inserted saline lock: 22 gauge in right forearm, using aseptic technique. Blood pf1 collected. 05:00 Initial lab(s) drawn, by ED staff, sent to lab. Urine collected: clean catch specimen, pf1 clear, Amount Voided: 75mL. 05:08 CBC with Diff Sent. pf1 05:08 CMP Sent. pf1 05:08 Lipase Sent. pf1 05:18 Test, Urine Sent. pf1 05:18 Urinalysis w/ reflexes Sent. pf1 05:39 CT Abd/Pelvis - IV Contrast Only In Process Unspecified. EDMS 07:23 Provided Education on: DISCHARGE. Pulse ox on. NIBP on. db 07:23 IV discontinued, intact, bleeding controlled, No redness/swelling at site. db Administered Medications: 05:15 Drug: NS 0.9% IV 1000 ml IV at 1 bolus Per protocol; 1000 mL bolus Route: IV; Rate: 1 pf1 bolus; Site: right forearm; 05:42 Follow up: Response: No adverse reaction; Marked relief of symptoms pf1 07:05 Follow up: Response: No adverse reaction; IV Status: Completed infusion; IV Intake: db 1000ml 05:15 Drug: Ondansetron IVP 4 mg IVP once; over 2 minutes Route: IVP; Site: right forearm; pf1 05:41 Follow up: Response: No adverse reaction; Marked relief of symptoms pf1 05:31 Drug: HYDROmorphone IVP 1 mg IVP once Route: IVP; Site: right forearm; pf1 05:42 Follow up: Response: No adverse reaction; Marked relief of symptoms; Pain is decreased; pf1 RASS: Alert and Calm (0) Medication: 07:23 VIS not applicable for this client. db Intake: 07:05 IV: 1000ml; Total: 1000ml. db Output: 07:05 Urine: NaNml; Total: NaNml. db Outcome: 07:00 Discharge ordered by MD. hurley 07:23 Discharged to home ambulatory, db 07:23 Condition: stable 07:23 Discharge instructions given to patient, Instructed on discharge instructions, follow up and referral plans. 07:27 Patient left the ED. db Signatures: Dispatcher [employer] EDUgo Cole MD MD sp3 Susan Martinez, RN RN db Madelaine Garcia RN RN pf1 Anayeli Ayon RN RN cm10 Neelam Duarte gm2 Corrections: (The following items were deleted from the chart) 05:01 04:55 Pain: Complains of pain in abdomen Pain currently is 7 out of 10 on a pain scale. pf1 Pain began 4 hours ago. pf1 05:03 05:02 LMP 08/24/2023, unknown pf1 pf1 05:27 04:45 BP 123 / 88; Pulse 95bpm; Resp 16bpm; Pulse Ox 100% RA; Temp 98.4F; Pain 7/10, pf1 Adult; pf1
[2023-09-27 08:12] VITALS: BP 108/55; TEMP 98.4; O2SAT 100
--- NOTE | 2023-09-29 22:57 | RAD REPORT ---
EXAM DESCRIPTION: CT - Abdomen Pelvis W Contrast - 09/27/2023 7:01 am CLINICAL HISTORY: The patient is 27 years old and is Female; ABD PAIN IV ONLY Bed Name: 19 TECHNIQUE: Axial computed tomography images of the abdomen and pelvis with intravenous contrast. S agittal and coronal reformatted images were created and reviewed. This CT exam was performed using one or more of the following dose reduction techniques: automated exposure control, adjustment of t he mA and/or kV according to patient size, and/or use of iterative reconstruction technique. COMPARISON: No relevant prior studies available. FINDINGS: LUNG BASES: Unremarkable No mass. No consolidation. ABDOMEN: LIVER: Low attenuation foci in the liver which may be due to cysts but are too small to characteriz e. GALLBLADDER AND BILE DUCTS: Unremarkable No calcified stones. No ductal dilation. PANCREAS: Unremarkable No mass. No ductal dilation. SPLEEN: Unremarkable No splenomegaly. ADRENALS: Unremarkable No mass. KIDNEYS AND URETERS: Unremarkable No solid mass. No hydronephrosis. STOMACH AND BOWEL: Unremarkable No obstruction. No mucosal thickening. PELVIS: APPENDIX: No findings to suggest acute appendicitis. BLADDER: Unremarkable No mass. REPRODUCTIVE: See below. ABDOMEN and PELVIS: INTRAPERITONEAL SPACE: Small volume hemorrhagic free fluid within the pelvis and layering along the right greater than left pericolic gutters. Hemorrhage appears to be centered around a ruptured right ovarian cyst. No free air. BONES/JOINTS: No acute fracture. No dislocation. SOFT TISSUES: Small fat-containing umbilical hernia. VASCULATURE: Unremarkable No abdominal aortic aneurysm. LYMPH NODES: Unremarkable No enlarged lymph nodes. IMPRESSION: 1. Ruptured right ovarian cyst with small volume hemoperitoneum within the pelvis and layering along the right greater than left pericolic gutters. Consider further characterization by tr ansvaginal ultrasound. 2. No other acute abnormality within the abdomen or pelvis. Electronically signed by: Drew Faustin MD 09/27/2023 06:55 AM CDT Due to temporary technical issues with the PACS/Fluency reporting system, reports are being signed by the in house radiologists without review as a courtesy to insure prompt reporting. The interpreting radiologist is fully responsible for the content of the report.
== END 2023-09-27 07:27 | disposition home or self-care (01) ==
LOC: ER 04:41
DX: N83.299 Other ovarian cyst, unspecified side (principal)
CPT/HCPCS: 96361; 85025; 81001; 36415; 81025; 83690; 80053; 74177; 96375; 96374; 99284; Q9967; J1170; J2405; J7030